=== PATIENT | female | born 1940 | race Caucasian/White ===

== ENCOUNTER 2017-04-18 06:21 | Emergency (ER) | payer BC, OTHER ==
[~2017-04-18] VITALS: Ht 167.6 cm; Wt 81.2 kg
[2017-04-18 06:26] VITALS: BP_SYST 158
--- NOTE | 2017-04-18 06:31 | NUR ---
Patient to ER bed 8 to gown for evaluation. Side rails up. Report given to Nieves RILEY.
--- NOTE | 2017-04-18 06:35 | NUR ---
Patient to ER C/O high BP. Patient states that her SBP is usualy in the 120's but today she had mild nausea and dizziness, checked her BP and it was SBP 170's. Denies CP, denies N/V/D/C. AAOx4, unlabored breathing, clear lungs, no signs of acute distress.
--- NOTE | 2017-04-18 06:40 | NUR ---
MASHA HANNA Kwaw at bedside evaluating the patient
[2017-04-18 07:04] VITALS: BP_SYST 158
--- NOTE | 2017-04-18 07:04 | NUR ---
Patient given written and verbal discharge instructions and verbalizes understanding by Dr. Isidro. ER MD discussed with patient the results and treatment provided. Patient in stable condition. ID arm band removed. No Rx given. Patient educated on pain management and to follow up with PMD. Pain Scale 0. Opportunity for questions provided and answered.
== END 2017-04-18 07:04 | disposition home or self-care (01) ==
LOC: SED 06:21
DX: F41.9 Anxiety disorder, unspecified (principal); F45.8 Other somatoform disorders
CPT/HCPCS: 99281

== ENCOUNTER 2022-08-10 18:24 | Inpatient (IN) | payer OTHER, MEDICARE ==
[~2022-08-10] VITALS: Ht 162.6 cm; Wt 81.4 kg
--- NOTE | 2022-08-10 18:30 | NUR ---
Placed in room 03 . Placed on monitor tech, blood pressure machine and pulse oximeter. To gown for exam. Side rails up. Report given to OSVALDO ROBLEDO.
[2022-08-10 18:35] VITALS: BP_SYST 146
--- NOTE | 2022-08-10 18:40 | NUR ---
Patient brought in from home by son. Chief Complaint: Patient sent by due to chest pain in the left upper chest x3d. Patient rates the pain at 5/10. Patient also reports covid positive x3w ago. Patient has hx of prediabetes and htn. PCP is Dr. Reinoso. Patient A&Ox4.
--- NOTE | 2022-08-10 18:44 | NUR ---
ER Dr. Timmons at bedside examining patient.
[2022-08-10] MEDS ORDERED: dilTIAZem HCL IVP 5 MG/ML VIAL IVP ONE (18:45)
[2022-08-10 19:13] LABS: BASOPHILS # (AUTO) 0.1 K/uL (0.0-0.2); BASOPHILS % (AUTO) 1.1 % (0.0-2.0); EOSINOPHILS # (AUTO) 0.3 K/uL (0.0-0.4); EOSINOPHILS % (AUTO) 2.5 % (0.0-4.0); HEMATOCRIT 38.4 % (36-48); HEMOGLOBIN 12.7 g/dL (12.0-16.0); LYMPHOCYTES % (AUTO) 30.2 % (20.5-51.5); MEAN CORPUSCULAR HEMOGLOBIN 30 pg (27-31); MEAN CORPUSCULAR HGB CONC 33 % (32-36); MEAN CORPUSCULAR VOLUME 91 fL (79.0-98.0); MONOCYTES # (AUTO) 1.1 K/uL (0.0-1.0); MONOCYTES % (AUTO) 10.7 % (1.7-9.3); NEUTROPHILS # (AUTO) 5.5 K/uL (1.8-7.7); NEUTROPHILS % (AUTO) 55.5 % (40.0-70.0); PLATELET COUNT (AUTO) 304 K/uL (130-430); RED BLOOD CELL COUNT(AUTO) 4.24 MIL/uL (4.2-6.2); RED CELL DISTRIBUTION WIDTH 13.5 % (9.0-15.0)
[2022-08-10] MEDS ORDERED: DILTIAZEM HCL 120 MG CAP.SR.24H PO ONE (19:15)
--- NOTE | 2022-08-10 19:19 | NUR ---
Bedside report given to Diana RILEY for resumption of care, patient stable.
[2022-08-10 19:21] LABS: ANION GAP 8 (5-15); CALCIUM 8.9 mg/dL (8.4-11.0); CHLORIDE 97 mmol/L (98-107); CREATININE 1.11 mg/dL (0.55-1.30); GLUCOSE 124 mg/dL (70-99); UREA NITROGEN, BLOOD 14 mg/dL (8-21)
--- NOTE | 2022-08-10 19:30 | NUR ---
Report received from Michelle GUTHRIE
[2022-08-10 19:34] LABS: ALANINE AMINOTRANSFERASE 26 U/L (12-78); ALBUMIN 3.5 g/dL (3.4-4.8); ASPARTATE AMINOTRANSFERASE 30 U/L (10-37); TOTAL BILIRUBIN 0.4 mg/dL (0.0-1.0)
[2022-08-10] MEDS ORDERED: POTASSIUM CHLORIDE 20 MEQ/PKT PACKET PO ONE (21:00)
--- NOTE | 2022-08-10 22:25 | NUR ---
VSS, NAD, EVEN UNLABORED RESPIRATIONS, ADMITTING DR RIVERO ON PT 2202 PT CONNECTED TO VS MONITOR.
[2022-08-10] MEDS ORDERED: METOPROLOL TARTRATE 50 MG TABLET PO ONE (22:30)
[2022-08-10] MEDS ORDERED: APIXABAN 2.5 MG TABLET PO SCH (22:30)
[2022-08-10] MEDS ORDERED: INSULIN REGULAR, HUMAN 100 UNITS/ML, 3 ML VIAL (humuLIN R) SUBCUT PRN (22:30)
[2022-08-10] MEDS ORDERED: DEXTROSE 50% JECT 50 ML DISP.SYRIN IVP PRN (22:30)
--- NOTE | 2022-08-10 22:30 | NUR ---
PT AMBULATING TO RESTROOM STEADY GAIT DAUGHTER ASSISSTING.
--- NOTE | 2022-08-10 22:32 | NUR ---
Admit bed requested Patient will be admitted to care of . Admitted to TELEMETRY unit. Diagnosis NEW ONSET AFIB WITH RVR Inpatient (Yes or No) Observation (Yes or No) N Orientation concerns or request close to nursing station (Yes or No) N Covid Status NEG On vent or bipap N Isolation requirements N Needs a sitter From Home (Yes or if No enter name of facility) Y Requires Dialysis (Yes or No) N Med Rec Completed (Yes of No) Y
[2022-08-10] MEDS ORDERED: METOPROLOL TARTRATE 25 MG TABLET ONE (22:37)
[2022-08-10] MEDS ORDERED: APIXABAN 2.5 MG TABLET ONE (22:56)
[2022-08-10] MEDS ORDERED: LOSA50TA3 PO (23:12)
[2022-08-10] MEDS ORDERED: ATEN50TA PO (23:12)
[2022-08-10] MEDS ORDERED: RIVA10TA PO (23:12)
[2022-08-10] MEDS ORDERED: ASA81 PO (23:14)
--- NOTE | 2022-08-11 01:03 | NUR ---
Patient will be admitted to care of [facility]. Admitted to TELE unit. Will go to room 121C. Belongings list completed. Complete and up to date summary report printed. SBAR report to SUZETTE RILEY be given at bedside with opportunity for questions.
--- NOTE | 2022-08-11 01:05 | NUR ---
ADMISSION NOTE Received patient from ER via gurney. Patient admitted with diagnosis of NEW ONSET AFIB W/ RVR. Patient is awake, alert, oriented X 4. Patient oriented to hospital room, call light, toileting, pain management and safety-teach back done. Patient informed that their room number is 121C. Personal belongings checked and Belongings List documented. Call light within reach.
[2022-08-11 01:14] VITALS: BP_SYST 135
--- NOTE | 2022-08-11 02:00 | NUR ---
Miss Gordon has been assessed as indicated. She denies pain. She remains on tele. the rate is 97-105 and she remains in afib. She has been noted to be both pleasant and cooperative. Her daughter is at the bedside. Once Miss Fernandez has been settled in she has been encouraged to go home and get some rest. Afib was explained to Miss Fernandez and her daughter. She ambulates with a steady gait. skin has been noted to be intact. she is resting quietly at this time.
--- NOTE | 2022-08-11 02:52 | NUR ---
CONSULTATION PAGED/CALLED Reason for Consultation: NEW ONSET AFIB Person Who was Notified: MAYDA Consulting Physician: AMANDA Harness Brusher Specialty: Ordering Physician: CARMEN
[2022-08-11 07:04] LABS: BASOPHILS # (AUTO) 0.1 K/uL (0.0-0.2); EOSINOPHILS # (AUTO) 0.1 K/uL (0.0-0.4); EOSINOPHILS % (AUTO) 1.8 % (0.0-4.0); HEMATOCRIT 35.5 % (36-48); HEMOGLOBIN 11.8 g/dL (12.0-16.0); LYMPHOCYTES # (AUTO) 1.7 K/uL (1.0-5.5); LYMPHOCYTES % (AUTO) 23.8 % (20.5-51.5); MEAN CORPUSCULAR HEMOGLOBIN 30 pg (27-31); MEAN CORPUSCULAR HGB CONC 33 % (32-36); MEAN CORPUSCULAR VOLUME 89 fL (79.0-98.0); MONOCYTES # (AUTO) 0.8 K/uL (0.0-1.0); NEUTROPHILS # (AUTO) 4.5 K/uL (1.8-7.7); NEUTROPHILS % (AUTO) 62.4 % (40.0-70.0); PLATELET COUNT (AUTO) 305 K/uL (130-430); RED BLOOD CELL COUNT(AUTO) 3.99 MIL/uL (4.2-6.2); WHITE BLOOD COUNT (AUTO) 7.3 K/uL (4.8-10.8)
--- NOTE | 2022-08-11 07:14 | NUR ---
Handoff has been given to Lilliam.
--- NOTE | 2022-08-11 07:40 | NUR ---
opening; Patient laying in bed, resting. A/O x 4, Georgian speaking. Patient Breathing even and unlabored on 2LPM. No pain, no distress, no SOB. Patient on cardiac diet. Patient has IV to LH 22g, both patent on SL. Bed is locked in lowest position. Call light within reach, all needs met, will continue to monitor.
[2022-08-11 07:44] LABS: INR 1.1 (0.8-1.2); PROTHROMBIN TIME 10.7 SECS (9.5-12.5)
[2022-08-11 07:59] LABS: ALANINE AMINOTRANSFERASE 28 U/L (12-78); ALBUMIN 2.9 g/dL (3.4-4.8); ANION GAP 6 (5-15); ASPARTATE AMINOTRANSFERASE 23 U/L (10-37); CALCIUM 8.8 mg/dL (8.4-11.0); CHLORIDE 101 mmol/L (98-107); CHOLESTEROL 107 mg/dL (<200); CREATININE 0.92 mg/dL (0.55-1.30); GLUCOSE 128 mg/dL (70-99); HDL CHOLESTEROL 61 mg/dL (>55); TOTAL BILIRUBIN 0.5 mg/dL (0.0-1.0); TRIGLYCERIDES 29 mg/dL (30-150); UREA NITROGEN, BLOOD 10 mg/dL (8-21)
[2022-08-11 08:00] VITALS: BP_SYST 123
[2022-08-11] MEDS ORDERED: METOPROLOL TARTRATE 25 MG TABLET PO SCH (09:00)
--- NOTE | 2022-08-11 09:04 | NUR ---
Notes Spoke to doctor Jessa regarding patients potassium level he ordered a one time 40 MEq. He also changed lopressor to 50 BID one time phone order.
[2022-08-11] MEDS ORDERED: POTASSIUM CHLORIDE 20 MEQ/PKT PACKET PO ONE (09:15)
[2022-08-11] MEDS ORDERED: METOPROLOL TARTRATE 50 MG TABLET PO ONE (09:30)
[2022-08-11] MEDS ORDERED: AMIODARONE HCL 200 MG TABLET PO ONE (09:30)
[2022-08-11] MEDS ORDERED: AMIODARONE HCL 200 MG TABLET ONE (09:38)
[2022-08-11] MEDS: ATORVASTATIN 20 MG TABLET PO SCH (09:43)
[2022-08-11] MEDS: ASPIRIN 81 MG TAB.CHEW PO SCH (09:43)
[2022-08-11 10:52] LABS: BILIRUBIN,URINE NEGATIVE (NEGATIVE); BLOOD, URINE NEGATIVE (NEGATIVE); CLARITY/URINE CLEAR (CLEAR); COLOR,URINE YELLOW (YELLOW); GLUCOSE,URINE NEGATIVE (NEGATIVE); KETONES,URINE NEGATIVE (NEGATIVE); LEUKOCYTE ESTERASE ,URINE 2+ (NEGATIVE); NITRITE, URINE NEGATIVE (NEGATIVE); PROTEIN URINE NEGATIVE (NEGATIVE); UROBILINOGEN,URINE 0.2 (0.2-1.0)
[2022-08-11 11:01] LABS: BACTERIA,URINE FEW /HPF (None Seen); MUCUS,URINE 1+ /LPF (None Seen); RBC,URINE 0-3 /HPF (0-3)
--- NOTE | 2022-08-11 12:00 | NUR ---
Notes; Patient laying in bed, watching TV. Patient Breathing even and unlabored on nasal cannula 2LPM. No pain, no distress, no SOB. Patient ambulatory and is able to use the restroom on her own . Bed is locked in lowest position. Call light within reach, all needs met, will continue to monitor.
[2022-08-11 12:28] VITALS: BP_SYST 130
--- NOTE | 2022-08-11 14:00 | NUR ---
Notes; Patient laying in bed, while having visit from family. Patient Breathing even and unlabored on nasal cannula 2LPM. No pain, no distress, no SOB. Patient ambulatory and is able to use the restroom on her own . Bed is locked in lowest position. Call light within reach, all needs met, will continue to monitor.
[2022-08-11] MEDS: AMIODARONE HCL 200 MG TABLET PO SCH ×2 (14:30→22:00)
[2022-08-11] MEDS: cefTRIAXone 1 GM in D5W 50 ML IV SCH (15:20)
[2022-08-11 16:39] VITALS: BP_SYST 122
[2022-08-11] MEDS: RIVAROXABAN 10 MG TABLET PO SCH (17:13)
--- NOTE | 2022-08-11 18:32 | NUR ---
Closing Notes; Patient laying in bed, resting and watching tv. A/O x 4, Lithuanian speaking. Patient Breathing even and unlabored on 2LPM. No pain, no distress, no SOB. Patient on cardiac diet. Patient has IV to LH 22g, patent on SL. Bed is locked in lowest position. Call light within reach, all needs met, will endorse to restaurant shift supervisor nurse.
[2022-08-11 19:00] VITALS: BP_SYST 123
[2022-08-11] MEDS: METOPROLOL TARTRATE 50 MG TABLET PO SCH (22:00)
[2022-08-12 01:03] VITALS: BP_SYST 123
[2022-08-12 04:57] VITALS: BP_SYST 120
[2022-08-12 07:40] VITALS: BP_SYST 114
--- NOTE | 2022-08-12 07:40 | NUR ---
OPENING NOTES; Patient laying in bed, resting. A/O x 4, Danish speaking. Patient Breathing even and unlabored on 2LPM nasal canula. No pain, no distress, no SOB. Patient on cardiac diet. Patient has IV to LH 22g, patent on SL. Bed is locked in lowest position. Call light within reach, all needs met, will continue to monitor.
--- NOTE | 2022-08-12 07:53 | NUR ---
CLOSIND NOTES PT RESTING IN BED WITH BREAK SET
[2022-08-12] MEDS: ASPIRIN 81 MG TAB.CHEW PO SCH (08:39)
[2022-08-12] MEDS: ATORVASTATIN 20 MG TABLET PO SCH (08:40)
[2022-08-12] MEDS: METOPROLOL TARTRATE 50 MG TABLET PO SCH ×2 (08:41→21:03)
[2022-08-12 12:00] VITALS: BP_SYST 113
[2022-08-12] MEDS ORDERED: POTASSIUM CHLORIDE 20 MEQ TAB.PRT.SR PO ONE (12:00)
--- NOTE | 2022-08-12 12:00 | NUR ---
Notes; Notes; Patient laying in bed, having lunch while son visits. No pain, no distress, no SOB. Patient ambulatory and is able to use the restroom on her own . Bed is locked in lowest position. Call light within reach, all needs met, will continue to monitor.
[2022-08-12] MEDS: AMIODARONE HCL 200 MG TABLET PO SCH ×3 (14:18→21:05)
[2022-08-12] MEDS: cefTRIAXone 1 GM in D5W 50 ML IV SCH (15:52)
--- NOTE | 2022-08-12 16:00 | NUR ---
Notes; Patient laying in bed, resting. No pain, no distress, no SOB. Patient ambulatory and is able to use the restroom on her own . Bed is locked in lowest position. Call light within reach, all needs met, will continue to monitor.
[2022-08-12 16:31] VITALS: BP_SYST 120
[2022-08-12] MEDS: RIVAROXABAN 10 MG TABLET PO SCH (19:00)
--- NOTE | 2022-08-12 19:09 | NUR ---
Closing Notes; Patient laying in bed, resting and watching tv. A/O x 4, Khmer speaking. Patient Breathing even and unlabored on 2LPM. No pain, no distress, no SOB. Patient on cardiac diet. Patient has IV to LH 22g, patent on SL. Bed is locked in lowest position. Call light within reach, all needs met, will endorse to clerical assigner nurse.
[2022-08-12 22:56] VITALS: BP_SYST 123
[2022-08-13] VITALS: BP_SYST 137
[2022-08-13 00:53] VITALS: BP_SYST 137
[2022-08-13] MEDS: AMIODARONE HCL 200 MG TABLET PO SCH (06:27)
[2022-08-13 06:51] LABS: BASOPHILS # (AUTO) 0.1 K/uL (0.0-0.2); BASOPHILS % (AUTO) 0.5 % (0.0-2.0); EOSINOPHILS # (AUTO) 0.1 K/uL (0.0-0.4); EOSINOPHILS % (AUTO) 1.2 % (0.0-4.0); HEMATOCRIT 34.5 % (36-48); HEMOGLOBIN 11.6 g/dL (12.0-16.0); LYMPHOCYTES # (AUTO) 1.6 K/uL (1.0-5.5); LYMPHOCYTES % (AUTO) 14.1 % (20.5-51.5); MEAN CORPUSCULAR HEMOGLOBIN 30 pg (27-31); MEAN CORPUSCULAR HGB CONC 34 % (32-36); MEAN CORPUSCULAR VOLUME 90 fL (79.0-98.0); MONOCYTES # (AUTO) 1.2 K/uL (0.0-1.0); MONOCYTES % (AUTO) 10.8 % (1.7-9.3); NEUTROPHILS # (AUTO) 8.4 K/uL (1.8-7.7); NEUTROPHILS % (AUTO) 73.4 % (40.0-70.0); PLATELET COUNT (AUTO) 239 K/uL (130-430); RED BLOOD CELL COUNT(AUTO) 3.85 MIL/uL (4.2-6.2); RED CELL DISTRIBUTION WIDTH 13.6 % (9.0-15.0); WHITE BLOOD COUNT (AUTO) 11.5 K/uL (4.8-10.8)
--- NOTE | 2022-08-13 07:08 | NUR ---
NOTES PT IS IN LOW POSITION IN BED WITH SAFETY PRECAUTION IN PLACE, AND PT RESTING.
[2022-08-13 07:27] LABS: ANION GAP 4 (5-15); CALCIUM 8.4 mg/dL (8.4-11.0); CHLORIDE 103 mmol/L (98-107); CREATININE 0.96 mg/dL (0.55-1.30); GLUCOSE 122 mg/dL (70-99); UREA NITROGEN, BLOOD 16 mg/dL (8-21)
[2022-08-13] MEDS: ATORVASTATIN 20 MG TABLET PO SCH (09:55)
[2022-08-13] MEDS: METOPROLOL TARTRATE 50 MG TABLET PO SCH (09:55)
[2022-08-13] MEDS: ASPIRIN 81 MG TAB.CHEW PO SCH (09:55)
[2022-08-13] MEDS ORDERED: ATEN50TA PO (10:01)
[2022-08-13] MEDS ORDERED: RIVA10TA PO (10:01)
[2022-08-13] MEDS ORDERED: AMIO200T61 PO (10:01)
--- NOTE | 2022-08-13 11:19 | NUR ---
Pt resting comfortably in bed AOX4 VSS Able to make needs known AM meds given Pt tolerated well Pending DC orders
[2022-08-13 11:21] VITALS: BP_SYST 130
--- NOTE | 2022-08-13 12:20 | NUR ---
CM: spoke with pt and nephew at bedside, pt is to dc home with HH today. Pt stated she ambulated with PT, no problem, no sob and her heart is not racing. She declined home health set up. Said she does not need , she will take medication at home and f/u with her PCP. Patient wants to go home after lunch. Kevin Malin made aware.
[2022-08-13 12:35] VITALS: BP_SYST 136
--- NOTE | 2022-08-13 15:23 | NUR ---
Pt DC per Dr Guzman's order DC instructions and prescription given to patient Pt verbalized understandings AOX4 VSS Able to make needs known Patient exited unit in wheel chair and in stable condition Patient exited unit with daughter
== END 2022-08-13 15:35 | disposition home health service (06) | DRG 309 ==
LOC: SED 18:24 → STU 20:43
PROVIDERS: ADMIT Internal Medicine; ATTEND Internal Medicine
DX: I48.91 Unspecified atrial fibrillation (principal); N39.0 Urinary tract infection, site not specified; I20.9 Angina pectoris, unspecified; I10 Essential (primary) hypertension; Z96.652 Presence of left artificial knee joint; R73.03 Prediabetes; I65.22 Occlusion and stenosis of left carotid artery; E66.9 Obesity, unspecified; Z20.822 Contact with and (suspected) exposure to COVID-19; K44.9 Diaphragmatic hernia without obstruction or gangrene; E87.6 Hypokalemia; Z79.82 Long term (current) use of aspirin; Z79.01 Long term (current) use of anticoagulants; Z86.16 Personal history of COVID-19; Z68.30 Body mass index [BMI] 30.0-30.9, adult; Z79.899 Other long term (current) drug therapy
CPT/HCPCS: 36415; 71045; 80048; 80053; 80061; 81000; 83037; 83735; 83880; 84443; 84484; 85025; 85610-TC; 85730-TC; 87086; 93005; 93306; 96374; 99285; G0378; J0696; J3490; J7060